=== PATIENT | male | born 1990 | race Caucasian/White ===

== ENCOUNTER 2017-10-27 18:12 | Emergency (ER) | payer MEDICAID, SELFPAY ==
[2017-10-27 18:12] VITALS: BP 114/78; PULSE 85; RESP 16; TEMP 37.2; O2SAT 99; BMI 21.5
--- NOTE | 2017-10-27 19:20 | RAD_ITS ---
STUDY: X-RAY - LEFT HAND, ATTENTION INDEX FINGER REASON FOR EXAM: Male, 26 years old. Foreign body TECHNIQUE: 3 view(s) of the finger were obtained. COMPARISON: None. FINDINGS: There is no evidence of fracture or dislocation. There are no significant degenerative changes. There are no radiodense foreign bodies. RAD/Finger(s) Min 2 Views IMPRESSION: No fracture or dislocation. No radiodense foreign body. Electronically Signed: Nacho Valencia, at 19:36 EDT Tel , Service support ,
--- NOTE | 2017-10-27 20:18 | ED.DCSUM_ITS ---
- ER Visit Summary Date of Service: 10/27/17 Chief Complaint: Possible foreign body left long finger [] History of Present Illness: The patient is a 26 M [presents the emergency department stating that 2 days ago he had some corn stalks in a plastic bag that he then put into a duffel bag and he was moving the stalks around in his duffel bag to make them fit when he thought he lacerated his finger on something. And he thought he pulled a piece of glass out of his finger at one point but there was no glass in his duffel bag he states. Patient still has a sensation like there might be a piece of glass stuck in his finger.] Physical Examination: [Left long finger-there is a small superficial 3 mm laceration over the lateral aspect of the DIP joint. I do not palpate any foreign bodies within the wound. Patient has normal range of motion at the DIP joint. He is neurovascular intact.] Test Results: [X-rays of the left long finger obtained showed no evidence of foreign bodies] Emergency Department Course and Treatment: [] Treatment Plan: [Patient will be referred to orthopedics for follow-up if continues to have issues or discomfort.] Also advised that if there is a small piece of glass potentially and there are a lot of times it will work its way out over time. Disposition: [Discharged home in stable condition] Impression: [Laceration left long finger-old without any foreign bodies noted.] This note was generated with [employer] dictation software. It may contain incorrect words, spelling, and punctuation that were not noted in review of the chart prior to signing ED Disposition - Plan for ED Patient: Chief Complaint: Upper Extremity Injury Referrals: Care Physician,No Primary [Primary Care Provider] -
--- NOTE | 2017-10-27 20:19 | ED.DEP ---
ED Disposition - Plan for ED Patient: Chief Complaint: Upper Extremity Injury Instructions: ED Laceration Hand Referrals: Care Physician,No Primary [Primary Care Provider] - Feliz Moore MD [STAFF PHYSICIAN] - 3-5 Days
[2017-10-27 20:23] VITALS: BP 124/89; PULSE 76; RESP 18; O2SAT 100
== END 2017-10-27 20:24 | disposition home or self-care (01) ==
LOC: ED 19:42
PROVIDERS: Emergency Provider Emergency Medicine
DX: S61.213A Laceration without foreign body of left middle finger without damage to nail, initial encounter (principal); Z72.0 Tobacco use; W25.XXXA Contact with sharp glass, initial encounter; Y93.89 Activity, other specified; Y92.89 Other specified places as the place of occurrence of the external cause; Y99.8 Other external cause status
CPT/HCPCS: 73140; 99282

== ENCOUNTER 2020-02-11 14:35 | Emergency (ER) | payer MEDICAID, SELFPAY ==
[2020-02-11 14:36] VITALS: BP 130/89; PULSE 94; RESP 16; TEMP 36.5; O2SAT 99; BMI 22.4
--- NOTE | 2020-02-11 14:56 | RAD_ITS ---
INDICATION: trauma, pt states crush injury to hand 2 days ago -- swelling on side, anterior bruising -- pain 5th [facility] EXAMINATION/TECHNIQUE: X-RAY - RIGHT XR Hand Min 3 Views 3 VIEWS COMPARISON: None. FINDINGS: Studies of the right hand in 3 projections shows a boxer''s fracture deformity involving the distal metaphysis of the fifth metacarpal. There is no other evidence of fracture, dislocation, bony destruction. RAD/Hand Min 3 Views IMPRESSION: A boxer''s fracture deformity is noted involving the distal metaphysis of the fifth metacarpal. Electronically Signed: Elkin Jensen, at 15:47 EST Tel , Service support ,
--- NOTE | 2020-02-11 16:13 | ED.DCSUM_ITS ---
- ER Visit Summary Date of Service: 02/11/20 Chief Complaint: Right hand pain History of Present Illness: The patient is a 29 M with no primary care physician. He is right-hand dominant. He reports that at work yesterday a piece of food off the line and hit his right hand. Since that time he had a sharp pain is 10 of 10 worsening to 10 currently. Is worsened by movement relieved by rest. He denies any paresthesias distally. He does not want to do this is Workmen's Compensation. Physical Examination: Vitals: Stable. Afebrile. General: Well-nourished and well-developed. Head: Normocephalic atraumatic. Neck: Supple, no lymphadenopathy. No JVD. Nontender. Cardiovascular: Regular rate and rhythm. No murmurs. Respiratory: No respiratory distress. Clear to auscultation bilaterally. Abdominal: Soft, nontender, nondistended, normal bowel sounds. No guarding, rebound, or peritoneal signs. Back: Nontender. Extremities: Moderate soft tissue swelling and tenderness palpation over the distal fourth and fifth metacarpals. He is neuro vas intact distal to this. Skin: Normal color, no rash. Neurologic: Alert and oriented ?3. Cranial nerves II through XII are intact. Normal strength and sensation. Psych: Normal affect. Test Results: Clinical Impression(s) from Imaging Studies Hand X-Ray 02/11/20 14:56 IMPRESSION: A boxer''s fracture deformity is noted involving the distal metaphysis of the fifth metacarpal. Electronically Signed: Elkin Jensen, at 15:47 EST Tel , Service support , Emergency Department Course and Treatment: Patient was treated with [place] and naproxen. He was placed in a Ortho-Glass ulnar gutter splint. Treatment Plan: Patient be discharged with [place]. Instructed to follow-up with Dr. Anders in 1 week for another exam. Return to the emergency department for any worsening symptoms. Disposition: To home in improved and stable condition. Impression: 1. Right distal fifth metacarpal fracture. 2. Ortho-Glass ulnar gutter splint, fabricated. This note was generated with [employer] software. It may contain incorrect words, spelling, and punctuation that were not noted in review of the chart prior to signing ED Disposition - Plan for ED Patient: Disposition: Home or Assisted Living Instructions: ED Fx Boxer Prescriptions: Naproxen [Naprosyn] 500 mg PO BID #14 tab Prescription Printed Hydrocodone Bitart/Apap 5-325 [[place] 5MG-325MG] 1 tab PO Q4H PRN PRN 2 Days #10 tab PRN Reason: Pain Prescription Printed Referrals: Markus Ramey DO [STAFF PHYSICIAN] - 1 Week
[2020-02-11] MEDS: Naproxen 250 MG Tablet 500 MG PO (16:40)
[2020-02-11] MEDS: HYDROcodone Bitartrate/Apap 5/325 Tablet PO (16:41)
[2020-02-11 16:42] VITALS: BP 145/67; PULSE 71; RESP 16; O2SAT 99
== END 2020-02-11 16:42 | disposition home or self-care (01) ==
LOC: ED 16:24
PROVIDERS: Emergency Provider Emergency Medicine
DX: S62.306A Unspecified fracture of fifth metacarpal bone, right hand, initial encounter for closed fracture (principal); F17.200 Nicotine dependence, unspecified, uncomplicated; X58.XXXA Exposure to other specified factors, initial encounter
CPT/HCPCS: 29130; 73130; 99285

== ENCOUNTER 2020-04-17 17:26 | Emergency (ER) | payer MEDICAID, SELFPAY ==
[2020-04-17 17:27] VITALS: BP 137/92; PULSE 102; RESP 15; TEMP 37.4; O2SAT 97; BMI 20.6
--- NOTE | 2020-04-17 18:58 | RAD_ITS ---
STUDY: X-RAY - RIGHT HAND REASON FOR EXAM: Male, 29 years old. Right 3rd digit pain and swelling. NKI. TECHNIQUE: 3 view(s) of the hand. COMPARISON: 02/11/2020. FINDINGS: Subacute to chronic fracture of the fifth metacarpal neck. There is bridging and internal callus and developing sclerosis at the fracture site. There is moderate apex dorsal medial angulation. No acute fracture. Specifically, no abnormality of the third digit. Joint spaces are well-maintained. There is mild medial soft tissue swelling. RAD/Hand Min 3 Views IMPRESSION: 1. Healing fracture of the fifth metacarpal neck. 2. No acute findings. Electronically Signed: Zoie Osullivan MD at 19:26 EST Tel , Service support ,
[2020-04-17 19:13] VITALS: BP 146/87; PULSE 91; RESP 16; TEMP 37.1; O2SAT 98
--- NOTE | 2020-04-17 20:15 | ED.RN ---
DR DOUGLAS AWARE OF PT'S REQUEST FOR RX FOR PAIN MEDICATIONS TO TAKE AT HOME.
--- NOTE | 2020-04-17 20:58 | ED.VISSUMM ---
- ER Visit Summary Date of Service: 04/17/20 Chief Complaint: Dental pain, right middle finger pain History of Present Illness: The patient is a 29 M presenting with dental pain and right middle finger pain. Patient states his tooth has been bothering him for the past 3 weeks. He has an appointment on May 04 with a dentist. He states over the last couple days he also noticed pain and swelling to his right middle finger. Denies injury. Denies other complaints. Physical Examination: Vitals are stable. Patient is afebrile. Alert no acute distress. HEENT exam right lower molar tenderness with no surrounding fluctuance. No sublingual edema. Neck is supple. Lungs are clear and equal bilaterally. Heart is regular rate and rhythm. Extremities right middle finger DIP tenderness and swelling. Painful range of motion. Normal cap refill. No tenderness along the flexor sheath. Skin is warm and dry. No focal neurologic deficit. Remainder of exam is unremarkable. Emergency Department Course and Treatment: X-ray right hand shows healing fracture of the fifth metacarpal neck. No acute findings. Plan was for antibiotics and follow-up with Dr. Roper. I discussed the patient with her and she recommends soaks with Dreft and antibiotics and follow-up. Patient left the ED prior to discharge instructions. I was able to get a hold of the patient by phone. I called prescription for Keflex in to [facility] [place]. I advised him to follow-up with Dr. Roper, he was given her phone number for follow-up. He was advised to return to the ED if he has any worsening complaints. Disposition: Elopement Impression: Odontalgia, right middle finger swelling, elopement from ED This note was generated with [employer] dictation software. It may contain incorrect words, spelling, and punctuation that were not noted in review of the chart prior to signing ED Disposition - Plan for ED Patient: Disposition: Against Medical Advice Referrals: Care Physician,No Primary [Primary Care Provider] -
== END 2020-04-17 20:40 | disposition left against medical advice (07) ==
LOC: ED 19:19
PROVIDERS: Emergency Provider Emergency Medicine
DX: K08.89 Other specified disorders of teeth and supporting structures (principal); M79.89 Other specified soft tissue disorders; F17.200 Nicotine dependence, unspecified, uncomplicated
CPT/HCPCS: 73130; 99282; J7030

== ENCOUNTER 2020-04-19 16:00 | Emergency (ER) | payer MEDICAID, SELFPAY ==
[2020-04-19 16:01] VITALS: BP 140/99; PULSE 106; RESP 16; TEMP 36.7; O2SAT 99; BMI 21.4
[2020-04-19 16:07] VITALS: BP 140/99; PULSE 106; RESP 16; TEMP 36.7; O2SAT 99
[2020-04-19] MEDS: Ondansetron 4 MG/2 ML Vial IV (16:27)
[2020-04-19] MEDS: Morphine 4 MG/ML Syringe IV (16:27)
--- NOTE | 2020-04-19 16:31 | NURSING ---
CALLED [facility] FOR TRANSFER.
--- NOTE | 2020-04-19 16:41 | ED.DCSUM_ITS ---
- ER Visit Summary Date of Service: 04/19/20 Chief Complaint: Finger pain History of Present Illness: The patient is a 29 M who is right-hand dominant. He has a history of a dog bite to his right forearm which developed into osteomyelitis about a year ago. He has been doing well since. Over the last several days, he has had pain and swelling to his right middle finger at the DIP joint. He was seen in this ED 2 days ago. He had unremarkable x-rays of that finger and was started on Keflex. He has been taking Keflex since then. He was referred to orthopedics for follow-up as an outpatient, but has not established care yet. He presents today for increasing pain and swelling. The pain is mainly focused at the DIP joint. He has redness, warmth and swelling extending from the distal phalanx through the middle phalanx. He denies fever or systemic symptoms. He has a history of seizures. No blood thinners. No IV drug abuse. No medication allergies. Physical Examination: Afebrile and vital signs unremarkable except for heart rate of 106. He is alert and oriented. No acute distress. His right middle finger is held in flexion. There is some fusiform swelling extending over the distal and middle phalanx. This is very tender to palpation, primarily around the DIP joint. I cannot range the DIP joint. Test Results: X-rays were not repeated. He denies any interval trauma. CBC, BMP, ESR, CRP, Covid pending. Emergency Department Course and Treatment: I am concerned given his worsening pain that he has an infected DIP joint. This does not seem to be consistent with FTS, but this was also considered. I spoke with Dr. Gardner who advised transfer to a facility that has hand surgery coverage. I attempted to call plastics here, but they were not provider relations coordinator. The other orthopedic group here was not on-call. Patient requested transfer to [facility]. Dr. Charles accepted the patient to the ED. Treatment Plan: As above Disposition: Transfer Impression: Right middle finger infection This note was generated with [employer] dictation software. It may contain incorrect words, spelling, and punctuation that were not noted in review of the chart prior to signing ED Disposition - Plan for ED Patient: Referrals: Jose Justice MD [Primary Care Provider] -
[2020-04-19 16:43] LABS: Absolute Lymphocyte Count 1.53 X10^3/uL (0.83-4.51); Absolute Neutrophil Count 7.6 X10^3/uL (2.0-7.7); Basophil# 0.09 X10^3/uL; Basophil% 0.8 % (0-1); Eosinophil# 0.79 X10^3/uL; Eosinophils% 7.3 % (0-5); Hematocrit 47.8 % (40-54); Hemoglobin 16.1 g/dL (13.0-16.5); Lymphocyte # 1.53 X10^3/ul (4.0); Lymphocyte % 14.2 % (19-41); Mean Corp Hgb Conc 33.7 g/dL (32-36); Mean Corpuscular Hgb 31.6 pg (27.0-32.0); Mean Corpuscular Volume 93.7 fL (80-94); Mean Platelet Vol. 9.7 fl (6.2-12.0); Monocyte# 0.75 X10^3/uL; NRBC Flagged by Analyzer 0 % (0-5); Neutrophil # 7.57 X10^3/uL (2.7-7.7); Neutrophil % 70.3 % (47-70); Platelet Count 261 K/mm3 (150-450); RBC Distribution Width CV 12.7 % (11.6-14.6); White Blood Count 10.8 K/mm3 (4.4-11.0)
--- NOTE | 2020-04-19 16:47 | NURSING ---
CALLED [facility], ETA IS 90 MIN
[2020-04-19 16:51] LABS: Erythrocyte Sedimentation Rate 5 mm/hr (0-20)
[2020-04-19 16:57] VITALS: BP 138/90; PULSE 100; RESP 16; TEMP 36.6; O2SAT 98
[2020-04-19 17:00] LABS: Anion Gap 3 (5-15); BUN 20 mg/dL (7-18); BUN/Creat Ratio 20.5 RATIO (10-20); Calcium,Total 9.1 mg/dL (8.5-10.1); Chloride 110 mmol/L (98-107); Creatinine, Serum 0.98 mg/dL (0.70-1.30); EST Glomerular Filtration Rate 95 mL/min (>60); Est Glom Filt Rate - Afr Amer 115 mL/min (>60); Estimated Creatinine Clearance 107.91 ml/min; Glucose 85 mg/dL (74-106); Potassium 4.1 mmol/L (3.5-5.1); Sodium Level 141 mmol/L (136-145)
== END 2020-04-19 18:12 | disposition short-term general hospital (02) ==
LOC: ED 16:31
PROVIDERS: Emergency Provider Emergency Medicine; PCP Internal Medicine
DX: L08.9 Local infection of the skin and subcutaneous tissue, unspecified (principal); F17.200 Nicotine dependence, unspecified, uncomplicated
CPT/HCPCS: 80048; 85025; 85652; 86140; 87426; 96374; 96375; 99285; A4216; J2405

== ENCOUNTER 2020-07-06 18:27 | Emergency (ER) | payer MEDICAID, SELFPAY ==
[2020-07-06 18:27] VITALS: BMI 20.6
[2020-07-06 18:28] VITALS: BP 131/76; PULSE 107; RESP 15; TEMP 36.9; O2SAT 97; BMI 21.7
--- NOTE | 2020-07-06 18:50 | ED.VIS.GI ---
History of Present Illness Chief Complaint: General Illness Informant: Patient - Abdominal Pain/Flank Pain Onset: Yesterday Context: Gradual Onset Timing: Intermittent - Not much in the way of pain. More nausea and diarrhea. Quality: Aching Location: Epigastric Current Severity: Gone Maximum Severity: Mild Worsened by: Food Relieved by: Nothing - Nausea/Vomiting/Emesis GI Symptom: Nausea, Vomiting Onset: Yesterday Quality: Nonbilious. Negative for: Blood streaks, Coffee ground, Hematemesis Severity: Mild - Diarrhea/Melena/Hematochezia GI Symptom: Diarrhea. Negative for: Melena, Hematochezia Onset: Yesterday Stool Quality: Watery. Negative for: Mucous, Black, Maroon, ADDY per rectum Severity: Severe Associated Symptoms: - - Patient states he is urinating. Negative for: Dysuria, Frequency, Hematuria, Urgency Narrative: 1-2 days of myalgias, subjective fevers and chills, vomiting, diarrhea. Minimal abdominal discomfort when it occurs. It does not radiate from the epigastrium. No chest symptoms he does not think he has a cough. No contact with anyone he knows of with Covid, no one else in the household is ill with this, he denies any suspicious food such as undercooked or uncooked meats or seafood recently. No recent travel out of the area. No recent antibiotics. No contact with others who are sick with this that he knows of. Last time he was in the hospital was several months ago, he had a minor surgery on his finger for an infection. No history of C. difficile. He has never had COVID-19 that he knows of and has not been vaccinated. - Past Medical History (1) Seizures Status: Chronic Past Medical History - Allergies and Home Meds Allergies/Adverse Reactions: Allergies No Known Allergies Allergy (Verified 07/06/20 18:28) Primary Care Physician: Jose Justice MD [STAFF PHYSICIAN] - As Needed (And/or ER) Surgical History: - - Right ring finger for infection Lives: With Family, Homeless Smoking Status: Current every day smoker Alcohol: None Review of Systems General: Reports: Chills, Fever, Malaise, Subjective. Denies: Sweats Eyes: Denies: Visual changes - bilaterally, Diplopia ENT: Denies: Bilateral ear pain, Rhinorrhea, Sore throat Cardiovascular: Denies: Chest pain, Palpitations Respiratory: Denies: Dyspnea, Cough, Dyspnea on exertion Gastrointestinal: Reports: Abdominal pain, Nausea, Vomiting, Diarrhea. Denies: Melena, Hematochezia Genitourinary: Denies: Dysuria, Hematuria, Frequency Musculoskeletal: Reports: Myalgias. Denies: Neck pain, Back pain, Swelling, Extremity Pain Skin: Denies: Rash, Wounds Neurological: Denies: Headache, Weakness, Numbness Physical Exam Vital Signs/Narrative: Vital Signs Temp Pulse Resp BP Pulse Ox 07/06/20 18:28 98.5 F 107 H 15 131/76 H 97 Inital Vital Signs reviewed: Yes General: Well nourished, Well developed, No Acute Distress Head: Normocephalic, Atraumatic Eyes: Perrl, EOMI ENT: Moist mucous membranes, No rhinorrhea Neck: Supple, Nontender Cardiovascular: Regular rate, Regular rhythm, No murmurs, Tachycardia - Mild Respiratory: No distress, CTA bilaterally, Chest nontender Abdomen: Soft, Nontender, Nondistended, No masses, Hyperactive bowel sounds Back: Nontender, Normal Inspection Extremities: Nontender, No edema. Negative for: Calf Tenderness Skin: Normal color, No rash, No Trauma Neurological: Alert, Oriented x3, Cranial nerves II-XII grossly intact, Normal Strength, Normal Sensation, Normal Gait Psychological: Normal affect, Normal Mood Diagnostic/Tx/Re-eval Laboratory Tests 07/06/20 07/06/20 Range/Units 19:00 19:00 WBC 5.7 (4.4-11.0) K/mm3 RBC 5.07 (4.6-6.2) M/mm3 Hgb 16.0 (13.0-16.5) g/dL Hct 47.5 (40-54) % MCV 93.7 (80-94) fL MCH 31.6 (27.0-32.0) pg MCHC 33.7 (32-36) g/dL RDW Std Deviation 42.4 (35.1-43.9) fl RDW Coeff of [place] 12.3 (11.6-14.6) % Plt Count 176 (150-450) K/mm3 MPV 9.2 (6.2-12.0) fl Immature Gran % (Auto) 0.200 (0.0-0.9) % Neut % (Auto) 61.3 (47-70) % Lymph % (Auto) 21.8 (19-41) % [place] % (Auto) 9.6 (0-10) % Eos % (Auto) 6.6 H (0-5) % Baso % (Auto) 0.5 (0-1) % Absolute Neuts (auto) 3.5 (2.0-7.7) X10^3/uL Absolute Lymphs (auto) 1.25 (0.83-4.51) X10^3/uL Nucleated RBC % 0 (0-5) % Sodium 139 (136-145) mmol/L Potassium 3.6 (3.5-5.1) mmol/L Chloride 105 (98-107) mmol/L Carbon Dioxide 28.0 (21.0-32.0) mmol/L Anion Gap 6 (5-15) BUN 23 H (7-18) mg/dL Creatinine 1.05 (0.70-1.30) mg/dL Estim Creat Clear Calc 101.94 ml/min Est GFR (MDRD) Af Amer 106 (>60) mL/min Est GFR (MDRD) Non-Af 87 (>60) mL/min BUN/Creatinine Ratio 21.9 H (10-20) RATIO Glucose 101 (74-106) mg/dL Calcium 8.4 L (8.5-10.1) mg/dL Total Bilirubin 0.90 (0.20-1.00) mg/dL AST 18 (15-37) U/L ALT 26 (16-61) U/L Alkaline Phosphatase 63 (45-117) U/L Total Protein 7.0 (6.4-8.2) g/dL Albumin 3.8 (3.2-5.0) g/dL Globulin 3.2 (2.2-4.2) g/dL Albumin/Globulin Ratio 1.2 (0.9-2.4) RATIO Lipase 76 (73-393) U/L - Medical Decision Making Labs as above, his rapid Covid antigen returned positive. His vital signs are stable, his pulse ox is 97% room air and he has no dyspnea. No need for admission. He also has no indications for outpatient monoclonal antibody infusion, nor antibiotics or any other specific COVID-19 treatment right now. He was given appropriate discharge instructions and reasons to return to the hospital. ED Disposition - Plan for ED Patient: Disposition: Home or Assisted Living Diagnosis: COVID-19 Instructions: Coronavirus Disease 2019 (COVID-19): Caring for Yourself or Others Prescriptions: Ondansetron [Zofran Odt] 8 mg PO Q8H PRN PRN #14 tablet PRN Reason: Nausea Prescription Printed Referrals: Jose Justice MD [STAFF PHYSICIAN] - As Needed (And/or ER) Additional Instructions: Tylenol and/or ibuprofen are okay to use as needed for pains. Use the included prescription as needed for nausea/vomiting. [id number] antidiarrheals are okay to use as needed. Read the information above involving isolation from family members. If you can purchase a pulse oximeter to use at home, monitor your oxygen levels and return to the hospital if you start going below 90%.
[2020-07-06] MEDS: Ondansetron 4 MG/2 ML Vial IV (19:01)
[2020-07-06] MEDS: 0.9% Normal Saline 1,000 ML 999 ML IV (19:01)
[2020-07-06] MEDS: Loperamide 2 MG Capsule 4 MG PO (19:02)
[2020-07-06] MEDS: Ketorolac 30 MG/ML Syringe IV (19:03)
[2020-07-06 19:06] LABS: Absolute Lymphocyte Count 1.25 X10^3/uL (0.83-4.51); Absolute Neutrophil Count 3.5 X10^3/uL (2.0-7.7); Basophil# 0.03 X10^3/uL; Basophil% 0.5 % (0-1); Eosinophil# 0.38 X10^3/uL; Eosinophils% 6.6 % (0-5); Hematocrit 47.5 % (40-54); Lymphocyte # 1.25 X10^3/ul (0.83-4.51); Lymphocyte % 21.8 % (19-41); Mean Corp Hgb Conc 33.7 g/dL (32-36); Mean Corpuscular Hgb 31.6 pg (27.0-32.0); Mean Corpuscular Volume 93.7 fL (80-94); Mean Platelet Vol. 9.2 fl (6.2-12.0); Monocyte# 0.55 X10^3/uL; Monocyte% 9.6 % (0-10); NRBC Flagged by Analyzer 0 % (0-5); Neutrophil # 3.51 X10^3/uL (2.7-7.7); Neutrophil % 61.3 % (47-70); Platelet Count 176 K/mm3 (150-450); RBC Distribution Width CV 12.3 % (11.6-14.6); RBC Distribution Width SD 42.4 fl (35.1-43.9); Red Blood Count 5.07 M/mm3 (4.6-6.2); White Blood Count 5.7 K/mm3 (4.4-11.0)
[2020-07-06 19:22] LABS: ALB/GLOB Ratio 1.2 RATIO (0.9-2.4); AST(SGOT) 18 U/L (15-37); Alanine Aminotransfer ALT/SGPT 26 U/L (16-61); Albumin, Serum 3.8 g/dL (3.2-5.0); Alkaline Phosphatase 63 U/L (45-117); Anion Gap 6 (5-15); BUN 23 mg/dL (7-18); BUN/Creat Ratio 21.9 RATIO (10-20); Calcium,Total 8.4 mg/dL (8.5-10.1); Chloride 105 mmol/L (98-107); Creatinine, Serum 1.05 mg/dL (0.70-1.30); EST Glomerular Filtration Rate 87 mL/min (>60); Est Glom Filt Rate - Afr Amer 106 mL/min (>60); Estimated Creatinine Clearance 101.94 ml/min; Globulin 3.2 g/dL (2.2-4.2); Glucose 101 mg/dL (74-106); Lipase 76 U/L (73-393); Potassium 3.6 mmol/L (3.5-5.1); Sodium Level 139 mmol/L (136-145)
[2020-07-06 20:13] VITALS: BP 132/74; PULSE 84; RESP 16; O2SAT 98
== END 2020-07-06 20:14 | disposition home or self-care (01) ==
PROVIDERS: Emergency Provider Emergency Medicine
DX: U07.1 COVID-19 (principal); F17.200 Nicotine dependence, unspecified, uncomplicated
CPT/HCPCS: 80053; 83690; 85025; 87426; 96374; 96375; 99284; J7030; A4216; J2405

== ENCOUNTER 2020-09-18 18:10 | Emergency (ER) | payer MEDICAID, SELFPAY ==
[2020-09-18 18:13] VITALS: BP 125/74; PULSE 75; PULSE 81; RESP 15; RESP 16; TEMP 36.9; O2SAT 98; BMI 21.9
[2020-09-18 19:14] LABS: Absolute Lymphocyte Count 2.01 X10^3/uL (0.83-4.51); Absolute Neutrophil Count 2.5 X10^3/uL (2.0-7.7); Basophil# 0.07 X10^3/uL; Basophil% 1.3 % (0-1); Eosinophil# 0.44 X10^3/uL; Eosinophils% 7.9 % (0-5); Hematocrit 41.2 % (40-54); Hemoglobin 14.1 g/dL (13.0-16.5); Lymphocyte # 2.01 X10^3/ul (0.83-4.51); Lymphocyte % 35.9 % (19-41); Mean Corp Hgb Conc 34.2 g/dL (32-36); Mean Corpuscular Hgb 30.8 pg (27.0-32.0); Mean Platelet Vol. 10.1 fl (6.2-12.0); Monocyte# 0.58 X10^3/uL; Monocyte% 10.4 % (0-10); NRBC Flagged by Analyzer 0 % (0-5); Neutrophil # 2.48 X10^3/uL (2.7-7.7); Neutrophil % 44.1 % (47-70); Platelet Count 177 K/mm3 (150-450); RBC Distribution Width CV 12.1 % (11.6-14.6); RBC Distribution Width SD 39.9 fl (35.1-43.9); Red Blood Count 4.58 M/mm3 (4.6-6.2); White Blood Count 5.6 K/mm3 (4.4-11.0)
[2020-09-18] MEDS: Divalproex Sodium 125 MG Tablet PO (19:21)
[2020-09-18 19:29] LABS: Anion Gap 5 (5-15); BUN 18 mg/dL (7-18); BUN/Creat Ratio 18.4 RATIO (10-20); Calcium,Total 8.7 mg/dL (8.5-10.1); Chloride 110 mmol/L (98-107); Creatinine, Serum 0.98 mg/dL (0.70-1.30); EST Glomerular Filtration Rate 94 mL/min (>60); Est Glom Filt Rate - Afr Amer 114 mL/min (>60); Estimated Creatinine Clearance 108.91 ml/min; Glucose 78 mg/dL (74-106); Potassium 3.5 mmol/L (3.5-5.1); Sodium Level 142 mmol/L (136-145)
[2020-09-18 19:46] LABS: Valproic Acid (Depakene) Level < 3 ug/mL (50-100)
--- NOTE | 2020-09-18 20:14 | EX.ED.DYSGE1 ---
HPI History of Present Illness Chief Complaint: Seizure Informant: patient Onset/Context/Timing Onset: Today Context: Sudden Onset Timing: Intermittent Location: Generalized Worsened by: Nothing Relieved by: Nothing Narrative Narrative: Patient presents with a seizure that occurred today. Patient states he has a history of seizures. Patient states this feels similar to her prior seizure. Patient states he is unsure what happened. Patient states he woke up and was feeling confused similar to prior seizures. Patient states he has been out of his Depakote for the past 30 days. Patient states he normally takes Depakote 150 mg twice a day. Patient denies biting his tongue. Patient denies any incontinence of urine or stool. [facility] Medical History Seizures Home Medications ibuprofen 600 mg tablet 800 ea PO Q6H PRN PRN 04/24/20 [History Last Taken Unknown] divalproex [Depakote] 250 mg PO TIDCM 07/06/20 [History Last Taken Unknown] trazodone 50 mg PO QHS 07/06/20 [History Last Taken Unknown] divalproex [Depakote] 250 mg PO TID #90 tab 09/18/20 [Rx Last Taken Unknown] Allergy/AdvReac Type Severity Reaction Status Date / Time No Known Allergies Allergy Verified 07/06/20 18:28 Surgical History History of eye surgery History of orthopedic surgery History of tonsillectomy Social History Smoking Status: Current every day smoker tobacco type: cigarettes ROS ROS ED Constitutional Constitutional ED: Denies chills or fever(s) Eyes Eyes: Denies blurry vision or change in vision ENT ENT ED: Denies rhinorrhea or sore throat Cardiovascular Cardiovascular: Denies chest pain or palpitations Respiratory/Chest Respiratory/Chest: Denies cough or dyspnea Gastrointestinal Gastrointestinal: Denies nausea or vomiting Genitourinary Genitourinary ED: Denies dysuria or hematuria Musculoskeletal Musculoskeletal: Reports back pain and neck pain Integumentary Denies abscess or rash Neurologic Neurologic: Reports headache(s); Denies weakness Allergic/Immunologic Allergic/Immunologic ED: Denies mouth swelling or urticaria EXAM Physical Exam Const Vital Signs: 09/18/20 18:13 Temperature 98.4 F Temperature Source Oral Pulse Rate 75 Respiratory Rate 15 Blood Pressure 125/74 H Blood Pressure Mean 91 Pulse Ox 98 Oxygen Delivery Method Room Air Positive well nourished and well developed General Appearance ED: well developed HEENT Reports moist mucous membranes Neck supple and no JVD Resp normal respiratory effort and clear to auscultation bilaterally Cardio regular rate, regular rhythm and no murmurs GI normal to inspection, nondistended, normoactive bowel sounds and non-tender Palpation: soft Extremity normal to inspection General Extremety ED: Negative for edema or tenderness General Extremity: Negative for edema Neuro oriented x3, CN's II-XII intact bilaterally and no sensory deficits noted Sensorium / Orientation: alert Motor Exam: strength 5/5 throughout Psych mental status grossly normal Skin no rashes or lesions noted MDM MDM MDM Narrative Medical decision making narrative: Seizure precautions were maintained. CBC and basic metabolic profile were within normal limits. Depakote level was obtained was less than 3. Patient feels better on reevaluation. Patient was given a prescription for Depakote. Patient was instructed to follow-up with his primary care physician in 5 to 7 days. Patient understood and was agreeable with the plan. All questions were answered. Lab Data Attestation: I reviewed the patient's lab results. Labs: Laboratory Results - last 24 hr 09/18/20 09/18/20 09/18/20 18:29 18:29 18:29 WBC 5.6 RBC 4.58 L Hgb 14.1 Hct 41.2 MCV 90.0 MCH 30.8 MCHC 34.2 RDW Std Deviation 39.9 RDW Coeff of [place] 12.1 Plt Count 177 MPV 10.1 Immature Gran % (Auto) 0.400 Neut % (Auto) 44.1 L Lymph % (Auto) 35.9 [place] % (Auto) 10.4 H Eos % (Auto) 7.9 H Baso % (Auto) 1.3 H Absolute Neuts (auto) 2.5 Absolute Lymphs (auto) 2.01 Nucleated RBC % 0 Sodium 142 Potassium 3.5 Chloride 110 H Carbon Dioxide 27.0 Anion Gap 5 BUN 18 Creatinine 0.98 Estim Creat Clear Calc 108.91 Est GFR (MDRD) Af Amer 114 Est GFR (MDRD) Non-Af 94 BUN/Creatinine Ratio 18.4 Glucose 78 Calcium 8.7 Valproic Acid < 3 L Discharge Plan Triage Chief Complaint: Seizure ED Provider: Mathew Chamberlain Dx/Rx/DC Orders Clinical Impression: Seizures Instructions: ED Seizure, Recurrent (Adult) Prescriptions: New divalproex [Depakote] 250 mg tablet,delayed release (DR/EC) 250 mg PO TID Qty: 90 RF: 0 Continued divalproex [Depakote] 250 MG tablet 250 mg PO TIDCM RF: 0 No Action trazodone 50 MG tablet 50 mg PO QHS RF: 0 ibuprofen 600 mg tablet 800 ea PO Q6H PRN PRN (Reason: Pain 1-10 Or Fever) RF: 0 Primary Care Provider: Care Physician,No Primary Referrals: Care Physician,No Primary [Primary Care Provider] - 5-7 Days Disposition Disposition: Home, Self Care
[2020-09-18 20:28] VITALS: BP 124/79; PULSE 78; RESP 18; O2SAT 96
== END 2020-09-18 20:34 | disposition home or self-care (01) ==
PROVIDERS: Emergency Provider Emergency Medicine
DX: R56.9 Unspecified convulsions (principal); F17.210 Nicotine dependence, cigarettes, uncomplicated; Z79.899 Other long term (current) drug therapy
CPT/HCPCS: 80048; 80164; 85025; 99285; A4216

== ENCOUNTER 2020-09-29 18:45 | Emergency (ER) | payer MEDICAID, SELFPAY ==
[2020-09-29 18:45] VITALS: BP 128/83; PULSE 96; RESP 16; TEMP 36.2; O2SAT 96; BMI 21.8
--- NOTE | 2020-09-29 19:06 | EDS_ITS ---
HPI History of Present Illness Chief Complaint: Headache Informant: patient Onset/Context/Timing Onset: Today Context: Gradual Onset Timing: Continuous Quality: Aching Location: Generalized Worsened by: Nothing Relieved by: Nothing Narrative Narrative: Patient presents with headache, body aches, nausea, and diarrhea that has been getting progressively worse since he woke up this morning. Patient states he has aching pain all over. Patient states nothing makes it worse and nothing makes it better. Patient admits to some subjective chills. Patient states his headache is generalized. Patient states he has a history of seizure disorder but denies any seizures today. Patient takes Depakote for his seizures. [facility] Medical History Seizures Home Medications divalproex [Depakote] 250 mg PO TID #90 tab 09/18/20 [Rx Last Taken Unknown] Allergy/AdvReac Type Severity Reaction Status Date / Time No Known Allergies Allergy Verified 09/29/20 18:45 Surgical History History of eye surgery History of orthopedic surgery History of tonsillectomy Social History Smoking Status: Current every day smoker tobacco type: cigarettes ROS ROS ED Constitutional Constitutional ED: Reports chills and subjective; Denies fever(s) Eyes Eyes: Denies blurry vision or change in vision ENT ENT ED: Denies rhinorrhea or sore throat Cardiovascular Cardiovascular: Denies chest pain or palpitations Respiratory/Chest Respiratory/Chest: Denies cough or dyspnea Gastrointestinal Gastrointestinal: Reports diarrhea and nausea; Denies vomiting Genitourinary Genitourinary ED: Denies dysuria or hematuria Musculoskeletal Musculoskeletal: Reports back pain, myalgias and neck pain Integumentary Denies abscess or rash Neurologic Neurologic: Reports headache(s); Denies weakness Allergic/Immunologic Allergic/Immunologic ED: Denies mouth swelling or urticaria EXAM Physical Exam Const Vital Signs: 09/29/20 18:45 Temperature 97.2 F L Temperature Source Temporal Pulse Rate 96 Respiratory Rate 16 Blood Pressure 128/83 H Blood Pressure Mean 98 Pulse Ox 96 Oxygen Delivery Method Room Air Positive well nourished and well developed General Appearance ED: well developed HEENT Reports moist mucous membranes Neck supple and no JVD Resp normal respiratory effort and clear to auscultation bilaterally Cardio regular rate, regular rhythm and no murmurs GI normal to inspection, nondistended, normoactive bowel sounds and non-tender Palpation: soft Extremity normal to inspection General Extremety ED: Negative for edema or tenderness General Extremity: Negative for edema Neuro oriented x3, CN's II-XII intact bilaterally and no sensory deficits noted Sensorium / Orientation: alert Motor Exam: strength 5/5 throughout Psych mental status grossly normal Skin no rashes or lesions noted MDM MDM MDM Narrative Medical decision making narrative: Patient was given IV fluids. Patient was given Compazine and Benadryl. CBC and comprehensive metabolic profile were within normal limits. Depakote level was less than 3. Patient states he is taking his Depakote as prescribed. Patient feels better on reevaluation. Patient was advised that this may be a viral illness. Patient was instructed to follow-up with his primary care physician in 5 to 7 days. Patient understood and was agreeable with the plan. All questions were answered. Lab Data Attestation: I reviewed the patient's lab results. Labs: Laboratory Results - last 24 hr 09/29/20 09/29/20 09/29/20 19:20 19:20 19:20 WBC 8.3 RBC 4.70 Hgb 14.6 Hct 41.7 MCV 88.7 MCH 31.1 MCHC 35.0 RDW Std Deviation 40.2 RDW Coeff of [place] 12.2 Plt Count 230 MPV 9.6 Immature Gran % (Auto) 0.200 Neut % (Auto) 58.7 Lymph % (Auto) 25.8 [place] % (Auto) 7.4 Eos % (Auto) 7.1 H Baso % (Auto) 0.8 Absolute Neuts (auto) 4.9 Absolute Lymphs (auto) 2.15 Nucleated RBC % 0 Sodium 142 Potassium 3.7 Chloride 108 H Carbon Dioxide 28.0 Anion Gap 6 BUN 18 Creatinine 1.11 Estim Creat Clear Calc 94.11 Est GFR (MDRD) Af Amer 99 Est GFR (MDRD) Non-Af 82 BUN/Creatinine Ratio 16.2 Glucose 106 Calcium 8.5 Total Bilirubin 0.70 AST 17 ALT 22 Alkaline Phosphatase 62 Total Protein 7.2 Albumin 4.3 Globulin 2.9 Albumin/Globulin Ratio 1.5 Valproic Acid < 3 L Discharge Plan Triage Chief Complaint: Headache ED Provider: Mathew Chamberlain Dx/Rx/DC Orders Clinical Impression: Viral illness Instructions: ED Viral Syndrome (Adult) Prescriptions: No Action divalproex [Depakote] 250 mg tablet,delayed release (DR/EC) 250 mg PO TID Qty: 90 RF: 0 Stand Alone Forms: ED Work / School Excuse Primary Care Provider: Care Physician,No Primary Referrals: Becki Villarreal [NON-STAFF] - 5-7 Days Care Physician,No Primary [Primary Care Provider] - Disposition Disposition: Home, Self Care
[2020-09-29] MEDS: 0.9% Normal Saline 1,000 ML 1000 ML IV (19:17)
[2020-09-29] MEDS: proCHLORPERazine 10 MG/2 ML Vial IV (19:18)
[2020-09-29] MEDS: DiphenhydrAMINE 50 MG/ML Syringe 25 MG IV (19:18)
[2020-09-29 19:29] LABS: Absolute Lymphocyte Count 2.15 X10^3/uL (0.83-4.51); Absolute Neutrophil Count 4.9 X10^3/uL (2.0-7.7); Basophil# 0.07 X10^3/uL; Basophil% 0.8 % (0-1); Eosinophil# 0.59 X10^3/uL; Eosinophils% 7.1 % (0-5); Hematocrit 41.7 % (40-54); Hemoglobin 14.6 g/dL (13.0-16.5); Lymphocyte # 2.15 X10^3/ul (0.83-4.51); Lymphocyte % 25.8 % (19-41); Mean Corpuscular Hgb 31.1 pg (27.0-32.0); Mean Corpuscular Volume 88.7 fL (80-94); Mean Platelet Vol. 9.6 fl (6.2-12.0); Monocyte# 0.62 X10^3/uL; Monocyte% 7.4 % (0-10); NRBC Flagged by Analyzer 0 % (0-5); Neutrophil # 4.89 X10^3/uL (2.7-7.7); Neutrophil % 58.7 % (47-70); Platelet Count 230 K/mm3 (150-450); RBC Distribution Width CV 12.2 % (11.6-14.6); RBC Distribution Width SD 40.2 fl (35.1-43.9); White Blood Count 8.3 K/mm3 (4.4-11.0)
[2020-09-29 19:45] LABS: ALB/GLOB Ratio 1.5 RATIO (0.9-2.4); AST(SGOT) 17 U/L (15-37); Alanine Aminotransfer ALT/SGPT 22 U/L (16-61); Albumin, Serum 4.3 g/dL (3.2-5.0); Alkaline Phosphatase 62 U/L (45-117); Anion Gap 6 (5-15); BUN 18 mg/dL (7-18); BUN/Creat Ratio 16.2 RATIO (10-20); Calcium,Total 8.5 mg/dL (8.5-10.1); Chloride 108 mmol/L (98-107); Creatinine, Serum 1.11 mg/dL (0.70-1.30); EST Glomerular Filtration Rate 82 mL/min (>60); Est Glom Filt Rate - Afr Amer 99 mL/min (>60); Estimated Creatinine Clearance 94.11 ml/min; Globulin 2.9 g/dL (2.2-4.2); Glucose 106 mg/dL (74-106); Potassium 3.7 mmol/L (3.5-5.1); Protein, Total 7.2 g/dL (6.4-8.2); Sodium Level 142 mmol/L (136-145)
[2020-09-29 20:13] LABS: Valproic Acid (Depakene) Level < 3 ug/mL (50-100)
== END 2020-09-29 21:12 | disposition home or self-care (01) ==
PROVIDERS: Emergency Provider Emergency Medicine
DX: B34.9 Viral infection, unspecified (principal); F17.210 Nicotine dependence, cigarettes, uncomplicated; Z79.899 Other long term (current) drug therapy
CPT/HCPCS: 80053; 80164; 85025; 96374; 96375; 99283; J7030; A4216

== ENCOUNTER 2020-12-06 12:13 | Emergency (ER) | payer MEDICAID, SELFPAY ==
[2020-12-06 12:14] VITALS: BP 134/81; PULSE 101; RESP 20; TEMP 37.2; O2SAT 98; BMI 21.8
[2020-12-06 12:31] VITALS: BP 118/83; PULSE 92; RESP 16
--- NOTE | 2020-12-06 12:41 | CT_ITS ---
STUDY: CT BRAIN WITHOUT CONTRAST REASON FOR EXAM: Male, 29 years old. headaches, seizures, syncope TECHNIQUE: Transaxial CT imaging of the brain was performed without administration of intravenous contrast material. Individualized dose optimization techniques were used for this CT. COMPARISON: None. FINDINGS: Normal soft tissues. Normal calvarium. Normal size ventricles and extra-axial spaces for the patient''s age. Normal white matter tracts of the cerebral hemispheres. Normal basal ganglia and thalami. Normal brainstem. Normal cerebellum. There is no intracranial hemorrhage. There are no findings of an acute ischemic infarction. Normal visualized paranasal sinuses. ASPECTS 10 CT/Brain/Head without Contrast IMPRESSION: There are no acute intracranial findings. Electronically Signed: Christiano Leon MD at 14:30 EDT , Service support ,
--- NOTE | 2020-12-06 12:42 | EKG12_ITS ---
Test Reason : GEN ILLNESS Blood Pressure : / mmHG Vent. Rate : 080 BPM Atrial Rate : 080 BPM P-R Int : 144 ms QRS Dur : 090 ms QT Int : 370 ms P-R-T Axes : 034 067 033 degrees QTc Int : 426 ms Normal sinus rhythm Normal ECG Confirmed by SHERINE BORJAS, SABIHA ([id number]), features editor SAVAGE OROZCO ([id number]) on 12/08/2020 10:35:42 AM Referred By: NEFTALI Confirmed By:SABIHA BASURTO MD
--- NOTE | 2020-12-06 12:43 | EX.ED.DYSGE1 ---
HPI History of Present Illness Chief Complaint: General Illness Informant: patient Onset/Context/Timing Onset: Days (3) Context: Gradual Onset Timing: Continuous Quality: weak/fatigued Location: all over Current Severity: Severe Maximum Severity: Severe Worsened by: nothing Relieved by: nothing Associated Symptoms Associated Symptoms: migraine w/ occ nausea no vtg, photophobia w/o vision chg/focal neuro sx Narrative Narrative: Patient states he has been feeling very fatigued last few days. At work he states he is passing out intermittently. He works at [employer], and is usually on his feet, states he has been recently multitasking using several machines at the same time. He has not been collapsing to the floor. He describes the episodes as a prodromal sense of numbness in his head and a funny sensation, followed by briefly blacking out for a relatively short period of time and then coming to without losing postural stability. 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 His mother then adds that he has been having more seizures than usual in the last few months. He was seen in an emergency department a month or so ago for recurrent seizures, he states they prescribed him Depakote, which is not the seizure medication that he used to take so he is refusing to take it, meanwhile continues to have recurrent seizures. When asked if he thinks he was having recurrent seizures in the last 3 days, he states he does not know although he admits he is describing the episodes exactly the same as he describes a seizure episodes. He has not been vaccinated for Covid. He denies being in contact with anyone with Covid that he knows of. He denies cough, shortness of breath, sore throat, runny nose or congestion or sinus pressure. No diarrhea. Achy all over at times. Nauseated but he thinks that goes along with a migraine that he has a history of as well. [facility] Medical History (Updated 12/06/20 @ 15:[address] Jason Mcknight MD) Migraines Seizures Home Medications carbamazepine [Tegretol] 200 mg PO BID #60 tab 12/06/20 [Rx Last Taken Unknown] Allergy/AdvReac Type Severity Reaction Status Date / Time No Known Allergies Allergy Verified 12/06/20 12:19 Surgical History History of eye surgery History of orthopedic surgery History of tonsillectomy Social History Smoking Status: Current every day smoker tobacco type: cigarettes ROS ROS ED Constitutional Constitutional ED: Reports body ache(s), fatigue, headache(s) and malaise; Denies chills or fever(s) Eyes Eyes: Reports photophobia; Denies blurry vision or diplopia ENT ENT ED: Denies ear pain or sore throat Cardiovascular Cardiovascular: Denies chest pain or palpitations Respiratory/Chest Respiratory/Chest: Denies cough or dyspnea Gastrointestinal Gastrointestinal: Reports nausea; Denies abdominal pain, diarrhea or vomiting Genitourinary Genitourinary ED: Denies dysuria or urinary frequency Musculoskeletal Musculoskeletal: Reports myalgias; Denies back pain Integumentary Denies abscess or rash Neurologic Neurologic: Reports headache(s); Denies paresthesias or weakness EXAM Physical Exam Const Vital Signs: 12/06/20 12:14 12/06/20 12:28 12/06/20 12:31 Temperature 98.9 F Temperature Source Temporal Pulse Rate 101 H 92 Respiratory Rate 20 H 16 Respiratory Effort Normal Non-Labored Respiratory Pattern Normal Blood Pressure 134/81 H 118/83 H Blood Pressure Mean 98 94 Pulse Ox 98 Oxygen Delivery Method Room Air 12/06/20 14:00 Temperature Temperature Source Pulse Rate 77 Respiratory Rate 20 H Respiratory Effort Respiratory Pattern Blood Pressure 123/84 H Blood Pressure Mean 97 Pulse Ox Oxygen Delivery Method Positive well nourished, well developed and no apparent distress General Appearance ED: well developed HEENT Reports normocephalic and moist mucous membranes atraumatic Eyes PERRL, EOMs intact bilaterally and conjunctivae normal Eyes Narrative: mild photophobia Neck no lymphadenopathy, supple and no meningeal signs Resp normal respiratory effort and clear to auscultation bilaterally Cardio regular rate, regular rhythm, S1 normal heart sound, S2 normal heart sound and no murmurs Rate: Negative for tachycardic GI non-tender and non-distended Palpation: soft Back/Spine no CVA tenderness, normal ROM and normal to inspection Extremity normal to inspection and full ROM Neuro oriented x3 and CN's II-XII intact bilaterally Sensorium / Orientation: awake and alert Speech: speech normal Gait (Neuro): normal gait Motor Exam: strength 5/5 throughout Psych mental status grossly normal, cooperative, activity/motor behavior normal and denies homicidal ideation Psych Narrative: Flat affect. No eye contact. Skin Lesions: no lesions Rashes: no rashes MDM MDM MDM Narrative Medical decision making narrative: As I discussed with the patient it sounds like he is having recurrent seizures as he has had in the past, and I am more than happy to prescribe him the Tegretol that he is on which is 200 mg twice daily, as well as running test to make sure there is nothing else emergent going on. His vital signs are normal, after triage his heart rate is 92 blood pressure 118/83, his pulse ox is 98 on room air and he is afebrile without/before any treatment. He was given IV fluids, Reglan, Toradol for his migraine. Labs and CT head were obtained, as well as a Covid test and an EKG. all of his testing was normal. He is feeling better after treatment. Patient is prescribed Tegretol, I suspect some of this is related to his recent seizure activity. Also refer to neurology. He is comfortable with that plan and asked for a work note, and wants to go back to work tomorrow. Lab Data Attestation: I reviewed the patient's lab results. Labs: Laboratory Results - last 24 hr 12/06/20 12/06/20 12/06/20 12:50 13:00 13:00 WBC 6.4 RBC 4.68 Hgb 14.7 Hct 42.7 MCV 91.2 MCH 31.4 MCHC 34.4 RDW Std Deviation 42.1 RDW Coeff of [place] 12.6 Plt Count 211 MPV 9.4 Immature Gran % (Auto) 0.200 Neut % (Auto) 49.5 Lymph % (Auto) 29.2 [place] % (Auto) 8.4 Eos % (Auto) 11.8 H Baso % (Auto) 0.9 Absolute Neuts (auto) 3.2 Absolute Lymphs (auto) 1.88 Nucleated RBC % 0 Sodium 140 Potassium 3.9 Chloride 109 H Carbon Dioxide 26.0 Anion Gap 5 BUN 17 Creatinine 0.91 Estim Creat Clear Calc 118.12 Est GFR (MDRD) Af Amer 125 Est GFR (MDRD) Non-Af 103 BUN/Creatinine Ratio 18.7 Glucose 96 Calcium 8.6 Urine Color Yellow Urine Clarity Clear Urine pH 7.0 Ur Specific [place] 1.010 Urine Protein Negative Urine Glucose (UA) Normal Urine Ketones Negative Urine Occult Blood 10 H Urine Nitrite Negative Urine Bilirubin Negative Urine Urobilinogen Normal Ur Leukocyte Esterase Negative Urine RBC 0 SEEN Urine WBC 0 SEEN Ur Squamous Epith Cells 0-5 SEEN Urine Bacteria 0 SEEN Urine Mucus 0 SEEN Radiography Chest X-Ray - ED: 1 View, Read by ED Physician, No Acute Disease and No Infiltrates Diagnostic Testing: Radiology Impression Brain CT 12/06/20 12:41 IMPRESSION: There are no acute intracranial findings. Electronically Signed: Christiano Leon MD at 14:30 EDT , Service support , EKG Initial EKG: Attestation: I personally reviewed and interpreted this EKG as follows: Interpretation: Sinus Rhythm (80) and No Acute Injury Pattern Comments: normal EKG Discharge Plan Triage Chief Complaint: General Illness ED Provider: Jason Mcknight Dx/Rx/DC Orders Clinical Impression: Seizures, Seizure disorder, Headache, migraine Instructions: ED Seizure, Recurrent (Adult) Prescriptions: New carbamazepine [Tegretol] 200 mg tablet 200 mg PO BID Qty: 60 RF: 0 Stand Alone Forms: ED Work / School Excuse Primary Care Provider: Care Physician,No Primary Referrals: Angel Gamboa MD [STAFF PHYSICIAN] - (Call for appointment) Care Physician,No Primary [Primary Care Provider] - Disposition Disposition: Home, Self Care
[2020-12-06 12:58] LABS: Bacteria 0 SEEN /hpf (None Seen); Mucous, Urine 0 SEEN /hpf (<or=2+); Red Blood Cells-Urine 0 SEEN /hpf (0-5); White Blood Cells 0 SEEN /hpf (0-5)
[2020-12-06 13:00] LABS: Color, Urine Yellow (Yellow); Glucose, Dipstick Normal (Normal); Ketone-Dipstick Negative (Negative); Leukocyte Esterase-Dipstick Negative /ul (Negative); Nitrite-Dipstick Negative (Negative); Occult Blood-Urine 10 /ul (Negative); Protein-Dipstick Negative (Negative); Urine Bilirubin Dipstick Negative (Negative); Urine Clarity Clear (Clear); Urine Urobilinogen Normal (Normal)
[2020-12-06 13:07] LABS: Squamous Epithelial Cells - UA 0-5 SEEN /hpf (0-5)
[2020-12-06 13:10] LABS: Absolute Lymphocyte Count 1.88 X10^3/uL (0.83-4.51); Absolute Neutrophil Count 3.2 X10^3/uL (2.0-7.7); Basophil# 0.06 X10^3/uL; Basophil% 0.9 % (0-1); Eosinophil# 0.76 X10^3/uL; Eosinophils% 11.8 % (0-5); Hematocrit 42.7 % (40-54); Hemoglobin 14.7 g/dL (13.0-16.5); Lymphocyte # 1.88 X10^3/ul (0.83-4.51); Lymphocyte % 29.2 % (19-41); Mean Corp Hgb Conc 34.4 g/dL (32-36); Mean Corpuscular Hgb 31.4 pg (27.0-32.0); Mean Corpuscular Volume 91.2 fL (80-94); Mean Platelet Vol. 9.4 fl (6.2-12.0); Monocyte# 0.54 X10^3/uL; Monocyte% 8.4 % (0-10); NRBC Flagged by Analyzer 0 % (0-5); Neutrophil # 3.19 X10^3/uL (2.7-7.7); Neutrophil % 49.5 % (47-70); Platelet Count 211 K/mm3 (150-450); RBC Distribution Width CV 12.6 % (11.6-14.6); RBC Distribution Width SD 42.1 fl (35.1-43.9); Red Blood Count 4.68 M/mm3 (4.6-6.2); White Blood Count 6.4 K/mm3 (4.4-11.0)
[2020-12-06] MEDS: Metoclopramide 10 MG/2 ML Vial 5 MG IV (13:13)
[2020-12-06] MEDS: Ketorolac 30 MG/ML Syringe IV (13:14)
[2020-12-06 13:23] LABS: Anion Gap 5 (5-15); BUN 17 mg/dL (7-18); BUN/Creat Ratio 18.7 RATIO (10-20); Calcium,Total 8.6 mg/dL (8.5-10.1); Chloride 109 mmol/L (98-107); Creatinine, Serum 0.91 mg/dL (0.70-1.30); EST Glomerular Filtration Rate 103 mL/min (>60); Est Glom Filt Rate - Afr Amer 125 mL/min (>60); Estimated Creatinine Clearance 118.12 ml/min; Glucose 96 mg/dL (74-106); Potassium 3.9 mmol/L (3.5-5.1); Sodium Level 140 mmol/L (136-145)
[2020-12-06 14:00] VITALS: BP 123/84; PULSE 77; RESP 20
[2020-12-06] MEDS: carBAMazepine 200 MG Tablet PO (15:51)
== END 2020-12-06 15:54 | disposition home or self-care (01) ==
PROVIDERS: Emergency Provider Emergency Medicine
DX: G40.909 Epilepsy, unspecified, not intractable, without status epilepticus (principal); G43.909 Migraine, unspecified, not intractable, without status migrainosus; F17.210 Nicotine dependence, cigarettes, uncomplicated
CPT/HCPCS: 70450; 80048; 81001; 85025; 87426; 93005; 96361; 96374; 96375; 99284; J7030; A4216

== ENCOUNTER 2021-06-08 10:35 | Emergency (ER) | payer MEDICAID, SELFPAY ==
[2021-06-08 10:35] VITALS: BP 108/86; PULSE 109; RESP 18; TEMP 36.2; O2SAT 100; BMI 22.4
--- NOTE | 2021-06-08 11:57 | EDS_ITS ---
HPI History of Present Illness Chief Complaint: Chest Other Detail of Chief Complaint: Anterior lower rib cage pain due to blunt trauma Informant: patient Onset/Context/Timing Onset: Yesterday Mechanism/Context: Blunt Injury Location: Anterior lower ribs Current Severity: Mild Maximum Severity: Moderate Worsened by: Movement, twisting and turning to the left Relieved by: Minimal if patient remains still Associated Symptoms Associated Symptoms: Negative for Parasthesias, Weakness, Loss of function, Inability to ambulate and Loss of consciousness Length of loss of consciousness: Not applicable Narrative Narrative: Patient is a 30-year-old male who presents with anterior chest pain that he localizes from the clavicular sternal area to the mid axillary line on the left. He denies abdominal pain. He denies flank pain. He denies change in the color of his urine. He denies pain referred her shoulders. He denies shortness of breath or dyspnea on exertion. He has no contraindication to NSAIDs. He took one of his 's gabapentin pills with no improvement. He does have a seizure disorder. He states he was stacking tables on the table slid striking his chest. Tetanus Immunization: 5-10 years Prior similar symptoms: No Recent Illness/Hospitalization: No [facility] Medical History Migraines Seizures Home Medications carbamazepine [Tegretol] 200 mg PO BID #60 tab 12/06/20 [Rx Last Taken Unknown] naproxen 500 mg PO BID #14 tab 06/08/21 [Rx Last Taken Unknown] Allergy/AdvReac Type Severity Reaction Status Date / Time No Known Allergies Allergy Verified 12/06/20 12:19 Surgical History History of eye surgery History of orthopedic surgery History of tonsillectomy Social History (Updated 06/08/21 @ 11:[address] Alessandro Whitfield MD) household members: spouse Smoking Status: Current every day smoker tobacco type: cigarettes substance use type: does not use ROS ROS ED Constitutional Constitutional ED: Denies chills, fever(s), subjective, sweats or weight loss Eyes Eyes: Denies blurry vision or change in vision ENT ENT ED: Denies ear pain, rhinorrhea or sore throat Cardiovascular Cardiovascular: Reports chest pain; Denies palpitations, paroxysmal nocturnal dyspnea or racing heartbeat Respiratory/Chest Respiratory/Chest: Denies cough, dyspnea, dyspnea on exertion or paroxysmal nocturnal dyspnea Gastrointestinal Gastrointestinal: Denies abdominal pain, constipation, diarrhea, nausea or vomiting Genitourinary Genitourinary ED: Denies hematuria Musculoskeletal Musculoskeletal: Denies back pain or neck pain Hematologic/Lymphatic Hematologic/Lymphatic: Denies easy bleeding or easy bruising EXAM Physical Exam Const Vital Signs: 06/08/21 10:35 06/08/21 12:04 Temperature 97.2 F L Temperature Source Temporal Pulse Rate 109 H Respiratory Rate 18 Respiratory Effort Normal Non-Labored Respiratory Pattern Normal Blood Pressure 108/86 H Blood Pressure Mean 93 Pulse Ox 100 Oxygen Delivery Method Room Air Positive well nourished and well developed General Appearance ED: well developed and NAD HEENT Reports TM's clear atraumatic Nose: Negative for septum abnormal Tympanic Membrane ED: Yes TM's clear Eyes PERRL and EOMs intact bilaterally General Eye ED: Yes other Other Details: There is no subconjunctival hemorrhage noted. Neck full ROM General: Negative for tenderness Chest Wall inspection of chest normal and palpation of chest normal Chest Narrative: There is pain to palpation over the sixth, seventh, eighth and ninth rib on the left from the mid axillary line to the midclavicular line. Resp normal respiratory effort and clear to auscultation bilaterally Cardio regular rhythm, S1 normal heart sound, S2 normal heart sound and no murmurs Cardio Narrative: There is no friction rub noted. There is no Yuli's crunch. Rate: regular rate GI normal to inspection, nondistended, normoactive bowel sounds, non-tender, non- distended and no masses GI Narrative: There is no tenderness in left upper quadrant. There is no hepatosplenomegaly. Palpation: soft Back/Spine normal to inspection and no thoracic nor lumbar tenderness General Back: Negative for CVA tenderness Extremity normal to inspection Neuro oriented x3 and CN's II-XII intact bilaterally Sensorium / Orientation: alert Psych mental status grossly normal and thought process normal Skin no rashes or lesions noted, no wounds and no jaundice MDM MDM MDM Narrative Medical decision making narrative: Since patient does not have a ride home he was treated with Naprosyn. X-ray was obtained to rule out fracture versus hemothorax versus pneumothorax. Also in the differential is contusion. Radiography Diagnostic Testin view x-ray of the left ribs were obtained. There is no evidence of pneumothorax, hemothorax or fractured ribs. Cardiac silhouette size normal. Mediastinum is unremarkable. Clavicle is normal. The film was interpreted by me at 1229. Discharge Plan Triage Chief Complaint: Chest Other ED Provider: Alessandro Whitfield Dx/Rx/DC Orders Clinical Impression: Chest wall contusion Prescriptions: New naproxen 500 MG tablet 500 mg PO BID Qty: 14 RF: 0 No Action carbamazepine [Tegretol] 200 mg tablet 200 mg PO BID Qty: 60 RF: 0 Primary Care Provider: Care Physician,No Primary Referrals: Care Physician,No Primary [Primary Care Provider] - Activity Restrictions/Additional Instructions: 1. You may be sore for several days. 2. Apply ice to left chest wall 6-8 times a day. 3. Avoid activity that causes you discomfort. Disposition Disposition: Home, Self Care
[2021-06-08] MEDS: Naproxen 250 MG Tablet 500 MG PO (12:08)
--- NOTE | 2021-06-08 12:15 | RAD_ITS ---
STUDY: X-RAY - UNILATERAL RIBS ( LEFT ) REASON FOR EXAM: Male, 30 years old. Trauma TECHNIQUE: 4 view(s) of the ribs. COMPARISON: None. FINDINGS: Normal visualized ribs without a demonstrated fracture. The visualized lung is clear and expanded. RAD/Ribs Unil 2V No CXR IMPRESSION: Normal x-ray examination of the ribs. Electronically Signed: Sony Ortiz MD at 12:33 EDT ,
== END 2021-06-08 12:41 | disposition home or self-care (01) ==
PROVIDERS: Emergency Provider Emergency Medicine; Visit Provider Emergency Medicine
DX: S20.20XA Contusion of thorax, unspecified, initial encounter (principal); G40.909 Epilepsy, unspecified, not intractable, without status epilepticus; F17.210 Nicotine dependence, cigarettes, uncomplicated; Z79.899 Other long term (current) drug therapy
CPT/HCPCS: 71100; 99283

== ENCOUNTER 2023-12-17 14:12 | Emergency (ER) | payer MEDICAID, SELFPAY ==
[2023-12-17 14:13] VITALS: BP 112/84; PULSE 65; RESP 22; TEMP 36.6; O2SAT 96; BMI 19.7
--- NOTE | 2023-12-17 15:51 | ED.RN ---
Pt stated he is unable to wait any longer and wanted to leave department, LWBS
== END 2023-12-17 15:52 | disposition left against medical advice (07) ==
LOC: ED 15:52
DX: Z53.21 Procedure and treatment not carried out due to patient leaving prior to being seen by health care provider (principal)

== ENCOUNTER 2024-01-17 20:21 | Emergency (ER) | payer MEDICAID, SELFPAY ==
[2024-01-17 20:21] VITALS: BP 124/82; PULSE 87; RESP 17; TEMP 36.6; O2SAT 99; BMI 21.2
--- NOTE | 2024-01-17 21:47 | EKG12_ITS ---
Test Reason : DYSRHYTHMIA Blood Pressure : */* mmHG Vent. Rate : 66 BPM Atrial Rate : 66 BPM P-R Int : 142 ms QRS Dur : 78 ms QT Int : 394 ms P-R-T Axes : 33 66 34 degrees QTcB Int : 413 ms Normal sinus rhythm Normal ECG Confirmed by BALDEMAR BORJAS, CHANTELLE ([id number]), medical transcription editor RISHI HERNANDEZ ([id number]) on 01/19/2024 11:30:23 AM Referred By: Confirmed By: CHANTELLE MCDERMOTT MD
--- NOTE | 2024-01-17 21:48 | EDS_ITS ---
HPI HPI - Psych History of Present Illness Chief Complaint: Suicidal Informant: patient and friend Narrative Narrative: Patient states he is hearing voices are telling him to kill himself. Therefore he found a knife on the street when he decided he might use it to slit his wrist. He did not attempt this. Apparently [facility] now and the nutrition services manager of the house brought him here. When asked why he is staying there, the patient gets very frustrated and asked the nutrition services manager to answer for him, he states that the patient had some poor living conditions, dealt with addiction in the past, and so he has been staying with them because it has been a positive experience for him. The patient states that he was diagnosed with depression with psychotic features, but has been off of medication for years because of insurance reasons and the fact that he cannot afford any of it. He denies any recent illness or injury. [facility] Medical History Anxiety Major depression with psychotic features Migraines Seizures Home Medications ?Medication ?Instructions ?Recorded ?Last Taken ?Type levetiracetam 500 mg tablet 500 mg PO BID 01/17/24 01/16/24 History Allergy/AdvReac Type Severity Reaction Status Date / Time Iodinated Contrast Media Allergy Mild hives Verified 01/17/24 20:21 Surgical History History of eye surgery History of tonsillectomy History of orthopedic surgery Social History household members: spouse Smoking Status: Current every day smoker tobacco type: e-cigarettes substance use type: does not use ROS ROS ED Constitutional Constitutional ED: Denies chills or fever(s) Eyes Eyes: Denies change in vision or diplopia ENT ENT ED: Denies rhinorrhea or sore throat Cardiovascular Cardiovascular: Denies chest pain or palpitations Respiratory/Chest Respiratory/Chest: Denies cough or dyspnea Gastrointestinal Gastrointestinal: Denies abdominal pain, diarrhea, nausea or vomiting Genitourinary Genitourinary ED: Denies dysuria or hematuria Musculoskeletal Musculoskeletal: Denies back pain or neck pain Integumentary Denies abscess or rash Neurologic Neurologic: Denies headache(s), paresthesias or weakness Psychiatric Psychiatric: Reports depression, hallucinations, suicidal ideation and suicidal thoughts; Denies homicidal ideation EXAM Physical Exam Const Vital Signs: 01/17/24 20:21 Temperature 98 F Temperature Source Oral Pulse Rate 87 Respiratory Rate 17 Blood Pressure 124/82 H Blood Pressure Mean 96 Pulse Ox 99 Oxygen Delivery Method Room Air Positive well nourished and well developed General Appearance ED: well developed and NAD HEENT Reports moist mucous membranes normocephalic and atraumatic Eyes PERRL and EOMs intact bilaterally General Eye ED: Negative for scleral icterus Neck no lymphadenopathy and supple Resp normal respiratory effort and clear to auscultation bilaterally Cardio no murmurs Rate: regular rate Rhythm: regular rhythm GI non-tender and non-distended Auscultation: normoactive bowel sounds Palpation: soft Back/Spine no CVA tenderness and normal ROM Extremity normal to inspection General Extremety ED: Negative for edema General Extremity: Negative for edema Neuro oriented x3, CN's II-XII intact bilaterally, no sensory deficits noted and gait normal Sensorium / Orientation: alert Motor Exam: strength 5/5 throughout Psych mental status grossly normal, thought process normal, cooperative, activity/motor behavior normal and denies homicidal ideation Appearance: grossly normal, appropriate and well kempt Speech: slow Mood & Affect: depressed and labile affect Thought Content: suicidality Skin Lesions: no lesions Rashes: no rashes MDM MDM MDM Narrative Medical decision making narrative: Labs and toxicology reviewed. Other than cannabinoids, he is negative for substances had medically cleared for psychiatric evaluation. Patient is resting comfortably and cooperative at this time. Lab Data Attestation: I reviewed the patient's lab results. Labs: Laboratory Results - last 24 hr 01/17/24 01/17/24 22:23 22:30 WBC 7.5 RBC 4.24 L Hgb 13.2 Hct 38.6 L MCV 91.0 MCH 31.1 MCHC 34.2 RDW Std Deviation 42.1 RDW Coeff of Cody 12.9 Plt Count 182 MPV 9.5 Immature Gran % (Auto) 0.400 Neut % (Auto) 42.1 L Lymph % (Auto) 39.1 [place] % (Auto) 9.5 Eos % (Auto) 7.8 H Baso % (Auto) 1.1 H Absolute Neuts (auto) 3.2 Absolute Lymphs (auto) 2.92 Nucleated RBC % 0 Sodium 141 Potassium 3.7 Chloride 110 H Carbon Dioxide 24.0 Anion Gap 7 BUN 18 Creatinine 0.91 Estim Creat Clear Calc 107.53 Est GFR (MDRD) Af Amer 123 Est GFR (MDRD) Non-Af 101 BUN/Creatinine Ratio 19.9 Glucose 111 H Calcium 8.5 Urine Opiates Screen NEGATIVE Urine Methadone Screen NEGATIVE Ur Barbiturates Screen NEGATIVE Ur Phencyclidine Scrn NEGATIVE Ur Amphetamines Screen NEGATIVE MDMA (Ecstasy) Screen NEGATIVE U Benzodiazepines Scrn NEGATIVE Urine Cocaine Screen NEGATIVE U Cannabinoids Screen POSITIVE H Ur Drug Screen Comment Ethyl Alcohol < 3.0 Rhythm Strip Rhythm Strip: Sinus Rhythm Rate: 65 Ectopy: None EKG Initial EKG: Attestation: I personally reviewed and interpreted this EKG as follows: Interpretation: Sinus Rhythm and No Acute Injury Pattern Comments: Nml axis & intervals; nml EKG Management Discussion w/another healthcare provider: dairy husbandry worker/Case management Discharge Plan Triage Chief Complaint: Suicidal ED Provider: Jason Mcknight Dx/Rx/DC Orders Clinical Impression: Suicidal ideation, Acute psychosis Prescriptions: No Action levetiracetam 500 mg tablet 500 mg PO BID Primary Care Provider: Care Physician,No Primary Referrals: Care Physician,No Primary [Primary Care Provider] - Print Language: [place] Disposition Disposition: Psychiatric Hospital or Unit
[2024-01-17 22:34] LABS: Absolute Lymphocyte Count 2.92 X10^3/uL (0.83-4.51); Absolute Neutrophil Count 3.2 X10^3/uL (2.0-7.7); Basophil# 0.08 X10^3/uL; Basophil% 1.1 % (0-1); Eosinophil# 0.58 X10^3/uL; Eosinophils% 7.8 % (0-5); Hematocrit 38.6 % (40-54); Hemoglobin 13.2 g/dL (13.0-16.5); Lymphocyte # 2.92 X10^3/ul (0.83-4.51); Lymphocyte % 39.1 % (19-41); Mean Corp Hgb Conc 34.2 g/dL (32-36); Mean Corpuscular Hgb 31.1 pg (27.0-32.0); Mean Platelet Vol. 9.5 fl (6.2-12.0); Monocyte# 0.71 X10^3/uL; Monocyte% 9.5 % (0-10); NRBC Flagged by Analyzer 0 % (0-5); Neutrophil # 3.15 X10^3/uL (2.7-7.7); Neutrophil % 42.1 % (47-70); Platelet Count 182 K/mm3 (150-450); RBC Distribution Width CV 12.9 % (11.6-14.6); RBC Distribution Width SD 42.1 fl (35.1-43.9); Red Blood Count 4.24 M/mm3 (4.6-6.2); White Blood Count 7.5 K/mm3 (4.4-11.0)
[2024-01-17 22:46] LABS: Alcohol, Blood (Medical)-Serum < 3.0 mg/dL
[2024-01-17 22:49] LABS: Anion Gap 7 (5-15); BUN 18 mg/dL (7-18); BUN/Creat Ratio 19.9 RATIO (10-20); Calcium,Total 8.5 mg/dL (8.5-10.1); Chloride 110 mmol/L (98-107); Creatinine, Serum 0.91 mg/dL (0.70-1.30); EST Glomerular Filtration Rate 101 mL/min (>60); Est Glom Filt Rate - Afr Amer 123 mL/min (>60); Estimated Creatinine Clearance 107.53 ml/min; Glucose 111 mg/dL (74-106); Potassium 3.7 mmol/L (3.5-5.1); Sodium Level 141 mmol/L (136-145)
[2024-01-17 22:53] LABS: Amphetamine Urine VISTA NEGATIVE (<1000 ng/mL); Barbiturate Urine VISTA NEGATIVE (< 200 ng/mL); Benzodiazepine Urine VISTA NEGATIVE (< 200 ng/mL); Cocaine Urine VISTA NEGATIVE (< 300 ng/mL); Ecstacy Urine VISTA NEGATIVE (< 500 ng/mL); Methadone Urine VISTA NEGATIVE (< 300 ng/mL); PCP Urine VISTA NEGATIVE (< 25 ng/mL); THC Urine VISTA POSITIVE (< 50 ng/mL); Vista UDS pH Range 5
[2024-01-18 05:28] VITALS: BP 100/60; PULSE 70; RESP 18; O2SAT 99
--- NOTE | 2024-01-18 12:16 | ED.RN ---
[facility] UN[facility] [id number] AFTER 1400
[2024-01-18 13:00] VITALS: BP 117/80; PULSE 77; RESP 18; TEMP 36.8; O2SAT 98
--- NOTE | 2024-01-18 13:25 | ED.RN ---
Nurse to nurse given to jamey
== END 2024-01-18 13:45 ==
PROVIDERS: Emergency Provider Emergency Medicine; Visit Provider Emergency Medicine
DX: R45.851 Suicidal ideations (principal); F23 Brief psychotic disorder; G40.909 Epilepsy, unspecified, not intractable, without status epilepticus; F32.9 Major depressive disorder, single episode, unspecified; F17.290 Nicotine dependence, other tobacco product, uncomplicated; Z59.01 Sheltered homelessness; Z79.899 Other long term (current) drug therapy; Z91.141 Patient's other noncompliance with medication regimen due to financial hardship
CPT/HCPCS: 80048; 80307; 82077; 85025; 93005; 99285